=== PATIENT | male | born 1980 | race Asian ===

== ENCOUNTER 2016-10-26 16:04 | Emergency (ER) | payer OTHER ==
[~2016-10-26] VITALS: Ht 172.7 cm; Wt 88.9 kg
[~2016-10-26 16:04] MED LIST: ANT25 PO; BENAZEPRIL HCL/1 TAB PO; LEXAPRO10 MG PO; LISINOPRIL20 MG PO; ZES10 PO; ZOCOR40 MG PO
[2016-10-26 20:08] VITALS: BP 152/92
== END 2016-10-26 20:08 | disposition left against medical advice (07) ==
LOC: ED 16:04
DX: Z53.21 Procedure and treatment not carried out due to patient leaving prior to being seen by health care provider (principal)